=== PATIENT | female | born 1990 | race Caucasian/White ===

== ENCOUNTER → 2019-03-07 | Outpatient (CLI) | payer OTHER ==
--- NOTE | 2019-03-07 17:00 | Diagnostic Imaging Report ---
PROCEDURE: US abdomen complete. TECHNIQUE: Multiple real-time grayscale images were obtained over the abdomen in various projections. INDICATION: Abdominal pain. COMPARISON: None available. FINDINGS: The liver is normal in size (13 cm) and echogenicity. There is no focal hepatic mass. The main portal vein is patent with antegrade flow. The gallbladder is distended without gallstones, wall thickening, or pericholecystic fluid. The common bile duct is obscured by overlying bowel gas. Pancreas is obscured by overlying bowel gas. The kidneys are normal in size. No hydronephrosis, shadowing calculi, or suspicious mass lesion. The spleen is normal in size measuring 11 cm and without focal lesion. The aorta and IVC are normal in caliber where seen. IMPRESSION: 1. No hydronephrosis or shadowing stones on either side. 2. Normal gallbladder. Dictated by: Dictated on workstation # [id number]
--- NOTE | 2019-03-07 17:28 | Diagnostic Imaging Report ---
PROCEDURE: US Non-ob pelvis comp/trans. INDICATION: Vaginal pain x1 week. History of an IUD, placed in July 2018. TECHNIQUE: Multiple real-time grayscale sonographic images were obtained of the pelvis transabdominally and transvaginally. CORRELATION STUDY: None. FINDINGS: UTERUS: 6.8 x 3.3 x 3.6 cm. Uterus is retroflexed, otherwise unremarkable. ENDOMETRIUM: 8 mm. Linear echogenic focus suggestive of an IUD appears to be in place. Evaluation of the adnexa is limited given the presence of prominent bowel gas. RIGHT OVARY: 5.9 x 4.9 x 4.5 cm. Right ovary limited in visualization but contains a larger cyst at 5.5 x 4.2 x 4.6 cm. Minimal peripheral echogenic focus is noted. There does appear to be presence of blood flow to the right ovary. LEFT OVARY: Cannot be discretely identified at transabdominal or transvaginal imaging. No significant free pelvic fluid. IMPRESSION: 1. Limited pelvic ultrasound evaluation owing to a prominent amount of bowel gas. 2. The right ovary does appear to be enlarged and contains a slightly complex cyst at approximately 5.5 cm in size. There does appear to be presence of blood flow to the right ovary. 3. Nonvisualization of the left ovary. 4. Intrauterine contraceptive device does appear to be present. Dictated by: Dictated on workstation # [id number]
== END ==
LOC: RAD 16:13
PROVIDERS: ATTEND Registered Nurse
DX: T83.9XXA Unspecified complication of genitourinary prosthetic device, implant and graft, initial encounter (principal); N83.201 Unspecified ovarian cyst, right side
CPT/HCPCS: 76700; 76830; 76856